=== PATIENT | male | born 1995 | race Caucasian/White ===

== ENCOUNTER → 2016-07-29 | Outpatient (CLI) | payer OTHER ==
--- NOTE | 2016-07-29 18:28 | REP ---
Thoracic spine series: Four views: History: Midline low back pain without sciatica. Acute. No comparison views. Findings: There is a minimal levoconvex curve in the upper lumbar spine and dextroconvex curve at the thoracolumbar junction. There is mild chronic appearing wedging at the T6 vertebral body and there are multiple Schmorl's nodes visible in the mid and lower thoracic vertebral bodies on lateral radiograph. There is some motion artifact on the lateral views. Pedicles and posterior elements are intact. No paravertebral swelling or soft tissue mass is seen. No acute fracture is appreciated. Thoracic kyphosis is very slightly exaggerated. Impression: Minimal wedging at the T6 vertebral body. This appears old. It is associated with multiple Schmorl's nodes and mild scoliotic curvature. Question Scheuermann disease . The thoracic spine CT or MRI scanning of the provide additional evaluation. Signed by Jeison Biswas MD 07/30/2016 10:43 A
--- NOTE | 2016-07-29 19:02 | REP ---
Lumbar spine series: Five views: History: Midline low back pain. Acute. Injury in a fall. Findings: Lumbar vertebral body heights are preserved. Alignment is normal. There is a Schmorl's node seen at the superior endplate of T12. No fracture or collapse is seen in the lumbar spine. Pedicles and posterior elements are intact. Sacrum and SI joints are unremarkable. Psoas margins are symmetric. Visualized bowel gas pattern is normal. Impression: Negative lumbar spine radiographs. Signed by Jeison Biswas MD 07/30/2016 10:43 A
== END ==
LOC: M LRY 15:35
PROVIDERS: ATTEND Nurse Practitioner Family
DX: M51.44 Schmorl's nodes, thoracic region (principal); M41.9 Scoliosis, unspecified; M54.5 Low back pain
CPT/HCPCS: 72072; 72110; G0463

== ENCOUNTER → 2017-07-13 | Outpatient (REF) | payer OTHER | LOC: M WUC 19:19 | DX: J02.9 Acute pharyngitis, unspecified (principal) ==